=== PATIENT | female | born 1990 | race Caucasian/White ===

== ENCOUNTER 2017-03-31 21:00 | Emergency (ER) | payer BC ==
[2017-03-31 21:28] LABS: BASO % 0.2 % (0-6); EOS % 2.9 % (0-6); GRAN % 67.6 % (47-80); HEMATOCRIT 35.9 % (35.0-47.0); HEMOGLOBIN 11.6 gm/dl (11.6-16.0); LYMPH % 20.3 % (16-45); MEAN CELL VOLUME 92.8 fl (81-97); MEAN CORPUSCULAR HGB CONC 32.3 g/dl (32-36); MEAN PLATELET VOLUME 10.3 fl (7.4-10.4); PLATELET COUNT 226 K/uL (130-400); RED BLOOD COUNT 3.87 M/uL (3.80-5.40); RED CELL DISTRIBUTION WIDTH 12.3 % (11.5-14.5); WHITE BLOOD COUNT W/O DIFF 8.6 K/uL (4.2-12.2)
[2017-03-31 21:45] LABS: ALB/GLOB RATIO 1.2 (1.1-1.8); ALBUMIN 4.1 g/dL (4.0-5.0); ALKALINE PHOSPHATASE 63 U/L (35-104); ALT/SGPT 18 U/L (<33); AST/SGOT 17 U/L (10.0-35.0); BLOOD UREA NITROGEN 9 mg/dL (6-20); CREATININE 0.6 mg/dL (0.5-0.9); EST GLOMERULAR FILTRATION RATE > 60 mL/min; GLUCOSE,RANDOM 86 mg/dL (74-109); TOTAL PROTEIN 7.5 g/dL (6.6-8.7)
[2017-03-31] MEDS: 0.9 % SODIUM CHLORIDE 1,000 ML BAG IV ONE (21:45)
[2017-03-31 22:23] LABS: URINE APPEARANCE CLEAR; URINE BILIRUBIN NEGATIVE (NEGATIVE); URINE BLOOD TRACE-I (NEGATIVE); URINE COLOR YELLOW; URINE GLUCOSE (UA) NEGATIVE (NEGATIVE); URINE KETONE NEGATIVE (NEGATIVE); URINE LEUKOCYTE ESTERASE NEGATIVE (NEGATIVE); URINE NITRITE NEGATIVE (NEGATIVE); URINE PROTEIN NEGATIVE (NEGATIVE); URINE UROBILINOGEN 0.2 E.U./dL (0.20 - 1.00)
[2017-03-31 22:25] LABS: URINE RBC 0 - 2 (NONE SEEN)
[2017-03-31 22:26] LABS: URINE BACTERIA NONE SEEN; URINE EPITHELIAL CELLS 0 - 2 (FEW); URINE WBC 0 - 2 (0-2/hpf)
[2017-03-31] MEDS: METHYLPREDNISOLONE PF 125MG/VIAL IVP ONE (22:50)
[2017-03-31] MEDS: KETOROLAC 30 MG/ML VIAL IVP ONE (22:56)
[2017-03-31] MEDS: AMPICILLIN SODIUM/SULBACTAM NA 3 G in 0.9 % SODIUM CHLORIDE 100ML 100 ML IVPB ONE (22:56)
--- NOTE | 2017-03-31 23:51 | Emergency Department Record ---
History of Present Illness - General Chief complaint: Flu Like Symptoms Stated complaint: FLU LIKE SYMPTOMS Time Seen by Provider: 03/31/17 21:10 Source: Patient Mode of Arrival: Ambulatory Limitations: No limitations - History of Present Illness Initial comments: pt has the flu w a severe sore throat and difficulty swallowing. she has had fevers for 3 days. she is nursing MD Complaint: Generalized weakness Onset/Timin -: Days(s) Severity: Moderate Severity scale (1-10): 7 Quality: Aching Consistency: Constant Improves with: None Associated Symptoms: Fever/chills, Headaches, Myalgias, Other - Emiliano Coma Scale Eye Response: (4) Open spontaneously Motor Response: (6) Obeys commands Verbal Response: (5) Oriented Emiliano Total: 15 - Symptoms of Stroke Symptoms of stroke: Dizziness - Related Data Home Medications Medication Instructions Recorded Confirmed Last Taken Azithromycin [Azithromycin] 250 mg PO DAILY 03/31/17 03/31/17 Unknown Previous Rx's Medication Instructions Recorded Amoxicillin/Potassium Clav 1 tab PO BID #20 tab 03/31/17 [Augmentin 875-125 Tablet] Allergies Allergy/AdvReac Type Severity Reaction Status Date / Time No Known Drug Allergies Allergy Verified 12/06/13 14:06 Travel Screening - Travel/Exposure Within Last 30 Days Have you traveled within the last 30 days?: No - Travel/Exposure Within Last Year Have you traveled outside the [place] in the last year?: No - Additonal Travel Details Have you been exposed to anyone with a communicable illness?: No - Travel Symptoms Symptom Screening: None Review of Systems Reviewed: No additional complaints except as noted below Constitutional: Reports: As per HPI. Denies: Chills, Fever, Malaise, Night sweats, Weakness, Weight change Eyes: Reports: As per HPI. Denies: Eye discharge, Eye pain, Photophobia, Vision change ENT: Reports: As per HPI, Congestion, Ear pain, Throat pain. Denies: Dental pain, Epistaxis, Hearing loss Respiratory: Reports: As per HPI. Denies: Cough, Dyspnea, Hemoptysis, Stridor, Wheezes Cardiovascular: Reports: As per HPI. Denies: Arrhythmia, Chest pain, Dyspnea on exertion, Edema, Murmurs, Orthopnea, Palpitations, Paroxysmal nocturnal dyspnea, Rheumatic Fever, Syncope Endocrine: Reports: As per HPI. Denies: Fatigue, Heat or cold intolerance, Polydipsia, Polyuria Gastrointestinal: Reports: As per HPI. Denies: Abdominal pain, Constipation, Diarrhea, Hematemesis, Hematochezia, Melena, Nausea, Vomiting Genitourinary: Reports: As per HPI. Denies: Abnormal menses, Discharge, Dyspareunia, Dysuria, Frequency, Hematuria, Incontinence, Retention, Urgency Musculoskeletal: Reports: As per HPI, Myalgia. Denies: Arthralgia, Back pain, Gout, Joint swelling, Neck pain Skin: Reports: As per HPI. Denies: Bruising, Change in color, Change in hair/ nails, Lesions, Pruritus, Rash Neurological: Reports: As per HPI, Weakness. Denies: Abnormal gait, Confusion, Headache, Numbness, Paresthesias, Seizure, Tingling, Tremors, Vertigo Psychiatric: Reports: As per HPI. Denies: Anxiety, Auditory hallucinations, Depression, Homicidal thoughts, Suicidal thoughts, Visual hallucinations Hematological/Lymphatic: Reports: As per HPI, Swollen glands. Denies: Anemia, Blood Clots, Easy bleeding, Easy bruising Past Medical History - SOCIAL HISTORY Smoking Status: Never smoker Alcohol Use: None Drug Use: None - RESPIRATORY Hx Respiratory Disorders: Yes Hx Asthma: Yes - CARDIOVASCULAR Hx Cardio Disorders: No - NEURO Hx Neuro Disorders: No - GI Hx GI Disorders: No - Hx Genitourinary Disorders: No - ENDOCRINE Hx Endocrine Disorders: No Hx Diabetes: No Hx Thyroid Disease: No - MUSCULOSKELETAL Hx Musculoskeletal Disorders: No - PSYCH Hx Psych Problems: No - HEMATOLOGY/ONCOLOGY Hx Hematology/Oncology Disorders: No Family Medical History Any Significant Family History?: No Hx Heart Disease: Grandparents Hx HTN: Grandparents Hx Resp Disorders: Mother, Grandparents Physical Exam - General General Appearance: Alert, Oriented x3, Cooperative, Mild distress - Head Head exam: Normal inspection - Eye Eye exam: Normal appearance, PERRL, Conjunctival injection, EOMI Pupils: Normal accommodation - ENT ENT exam: Normal exam, Mucous membranes moist, Normal external ear exam, Normal orophraynx, TM's normal bilaterally Ear exam: Normal external inspection. negative: External canal tenderness Nasal Exam: Normal inspection. negative: Discharge, Sinus tenderness Mouth exam: Normal external inspection, Tongue normal Teeth exam: Normal inspection. negative: Dental caries Throat exam: Tonsillar erythema, Tonsillomegaly, Tonsillar exudate - Neck Neck exam: Full ROM, Lymphadenopathy, Tenderness - Respiratory Respiratory exam: Normal lung sounds bilaterally. negative: Respiratory distress - Cardiovascular Cardiovascular Exam: Regular rate, Normal rhythm, Normal heart sounds - GI/Abdominal GI/Abdominal exam: Soft, Normal bowel sounds. negative: Tenderness - Rectal Rectal exam: Deferred - exam: Deferred - Extremities Extremities exam: Normal inspection, Full ROM, Normal capillary refill. negative: Tenderness - Back Back exam: Reports: Normal inspection, Full ROM. Denies: Muscle spasm, Rash noted, Tenderness - Neurological Neurological exam: Alert, CN II-XII intact, Normal gait, Oriented X3 - Psychiatric Psychiatric exam: Normal affect, Normal mood - Skin Skin exam: Dry, Intact, Normal color, Warm Course Vital Signs 03/31/17 03/31/17 21:05 22:28 Temperature 98.5 F 98.6 F Pulse Rate [ 93 H 88 Pulse Ox Probe] Respiratory 16 20 Rate Blood Pressure 123/89 114/75 [Left Arm] Pulse Ox 99 99 - Reevaluation(s) Reevaluation #1: 03/31/17 23:[address] shows severe enlargement of tonsilar pillars, prominent soft tissue density poss phlegman.narrowing of airway, extensive cervical adenopathy Medical Decision Making - Lab Data Result diagrams: 03/31/17 21:21 03/31/17 21:21 Lab Results 03/31/17 03/31/17 03/31/17 Range/Units 21:21 21:21 21:21 WBC 8.6 (4.2-12.2) K/uL RBC 3.87 (3.80-5.40) M/uL Hgb 11.6 (11.6-16.0) gm/dl Hct 35.9 (35.0-47.0) % MCV 92.8 (81-97) fl MCH 30.0 (27-33) pg MCHC 32.3 (32-36) g/dl RDW 12.3 (11.5-14.5) % Plt Count 226 (130-400) K/uL MPV 10.3 (7.4-10.4) fl Gran % 67.6 (47-80) % Lymphocytes % 20.3 (16-45) % Monocytes % 9.0 (0-9) % Eosinophils % 2.9 (0-6) % Basophils % 0.2 (0-6) % Sodium 140 (136-145) mmol/L Potassium 3.7 (3.4-4.5) mmol/L Chloride 102 (98-107) mmol/L Carbon Dioxide 26.0 (22-29) mmol/L Anion Gap 12.0 (7-16) BUN 9 (6-20) mg/dL Creatinine 0.6 (0.5-0.9) mg/dL Estimated GFR > 60 mL/min Random Glucose 86 (74-109) mg/dL Calcium 9.2 (8.6-10.0) mg/dL Total Bilirubin 0.20 (0.2-1.0) mg/dL AST 17 (10.0-35.0) U/L ALT 18 (<33) U/L Alkaline Phosphatase 63 (35-104) U/L Total Protein 7.5 (6.6-8.7) g/dL Albumin 4.1 (4.0-5.0) g/dL Globulin 3.4 (1.4-4.8) gm/dL Albumin/Globulin Ratio 1.2 (1.1-1.8) Urine Color Urine Appearance Urine pH (5.0-8.0) Ur Specific [place] (1.002-1.030) Urine Protein (NEGATIVE) Urine Glucose (UA) (NEGATIVE) Urine Ketones (NEGATIVE) Urine Blood (NEGATIVE) Urine Nitrite (NEGATIVE) Urine Bilirubin (NEGATIVE) Urine Urobilinogen (0.20 - 1.00) E.U./dL Ur Leukocyte Esterase (NEGATIVE) Urine RBC (NONE SEEN) Urine WBC (0-2/hpf) Ur Epithelial Cells (FEW) Urine Bacteria Monoscreen (NEGATIVE) Group A Strep Screen Negative (NEGATIVE) 03/31/17 03/31/17 Range/Units 21:21 22:23 WBC (4.2-12.2) K/uL RBC (3.80-5.40) M/uL Hgb (11.6-16.0) gm/dl Hct (35.0-47.0) % MCV (81-97) fl MCH (27-33) pg MCHC (32-36) g/dl RDW (11.5-14.5) % Plt Count (130-400) K/uL MPV (7.4-10.4) fl Gran % (47-80) % Lymphocytes % (16-45) % Monocytes % (0-9) % Eosinophils % (0-6) % Basophils % (0-6) % Sodium (136-145) mmol/L Potassium (3.4-4.5) mmol/L Chloride (98-107) mmol/L Carbon Dioxide (22-29) mmol/L Anion Gap (7-16) BUN (6-20) mg/dL Creatinine (0.5-0.9) mg/dL Estimated GFR mL/min Random Glucose (74-109) mg/dL Calcium (8.6-10.0) mg/dL Total Bilirubin (0.2-1.0) mg/dL AST (10.0-35.0) U/L ALT (<33) U/L Alkaline Phosphatase (35-104) U/L Total Protein (6.6-8.7) g/dL Albumin (4.0-5.0) g/dL Globulin (1.4-4.8) gm/dL Albumin/Globulin Ratio (1.1-1.8) Urine Color Yellow Urine Appearance Clear Urine pH 7.0 (5.0-8.0) Ur Specific [place] <= 1.005 (1.002-1.030) Urine Protein Negative (NEGATIVE) Urine Glucose (UA) Negative (NEGATIVE) Urine Ketones Negative (NEGATIVE) Urine Blood Trace-i (NEGATIVE) Urine Nitrite Negative (NEGATIVE) Urine Bilirubin Negative (NEGATIVE) Urine Urobilinogen 0.2 (0.20 - 1.00) E.U./dL Ur Leukocyte Esterase Negative (NEGATIVE) Urine RBC 0 - 2 (NONE SEEN) Urine WBC 0 - 2 (0-2/hpf) Ur Epithelial Cells 0 - 2 (FEW) Urine Bacteria None seen Monoscreen Negative (NEGATIVE) Group A Strep Screen (NEGATIVE) Disposition Disposition: Discharge Clinical Impression: Influenza, Tonsillitis with influenza, Tonsillitis with exudate Disposition: Home, Self-Care Condition: (1) Good Instructions: Influenza (ED), Tonsillitis (ED) Additional Instructions: sleep elevated. push fluids.return if worse Prescriptions: Amoxicillin/Potassium Clav [Augmentin 875-125 Tablet] 1 tab PO BID #20 tab Quality - Quality Measures Quality Measures: N/A - Blood Pressure Screening Does Patient Have Any of the Following: No Blood Pressure Classification: Normal BP Reading Systolic Measurement: 114 Diastolic Measurement: 75 Screening for High Blood Pressure: < Normal BP, F/U Not Required > [G3102]
[2017-04-01] MEDS: GENTAMICIN SULFATE 0.3% OPTH 5 ML BTL OPTH ONE (00:13)
--- NOTE | 2017-04-01 14:07 | RADIOLOGY REPORT ---
EXAM: CHEST, TWO VIEWS HISTORY: DIFFICULTY BREATHING. TECHNIQUE: Frontal and lateral views of the chest were obtained. Comparison: 12/09/11 chest. FINDINGS: The heart size is normal. The lungs are clear. No pneumothorax. IMPRESSION: NEGATIVE CHEST EXAMINATION. JOB NUMBER: [id number] MTDD
--- NOTE | 2017-04-01 14:14 | CT SCAN REPORT ---
EXAM: CT OF THE NECK HISTORY: THROAT SWELLING. TECHNIQUE: CT of the neck was performed following IV administration of 100 ml of Omnipaque 300 contrast. Axial images were obtained with coronal and sagittal reconstructions. Comparison: None. FINDINGS: Limited evaluation of brain parenchyma is unremarkable. The epiglottis and aryepiglottic folds are normal. The prevertebral soft tissues are normal. Extensive enlargement and heterogeneity of the tonsillar pillars as well as enhancement and increased soft tissue density in the posterior nasopharynx, likely reactive in nature. Poorly defined areas of diminished density associated with these sites likely reflects phlegmon. Developing abscess would be difficult to exclude entirely. The prominence of the tonsillar pillars does result in mild narrowing of the upper airway. There are enlarged cervical chain lymph nodes bilaterally, which are likely reactive. The epiglottis and aryepiglottic folds are normal. The subglottic airway is widely patent. The lung apices are unremarkable. There is an unremarkable appearance to the thyroid gland. The parotid and submandibular glands are unremarkable. The paranasal sinuses are well aerated. IMPRESSION: PROMINENT SOFT TISSUE DENSITY IN THE POSTERIOR NASOPHARYNX, WELL AN ENLARGED AND HETEROGENEOUS APPEARANCE TO THE TONSILLAR PILLARS BILATERALLY. AREAS OF LOW DENSITY LIKELY REFLECT PHLEGMON, HOWEVER, DEVELOPING ABSCESS WOULD BE DIFFICULT TO EXCLUDE ENTIRELY. THERE IS BILATERAL CERVICAL CHAIN ADENOPATHY WHICH IS LIKELY REACTIVE IN NATURE. JOB NUMBER: [id number] [facility]
== END 2017-04-01 00:15 | disposition home or self-care (01) ==
LOC: ER 21:00
DX: J10.89 Influenza due to other identified influenza virus with other manifestations (principal); J03.90 Acute tonsillitis, unspecified; J35.1 Hypertrophy of tonsils; R59.0 Localized enlarged lymph nodes
CPT/HCPCS: 70491; 71046; 80053; 81001; 85025; 86308; 87880; 96374; 96375; 99284; J0295; J1885; J2930; J7030